=== PATIENT | female | born 2000 | race Caucasian/White ===

== ENCOUNTER 2019-05-23 14:51 | Emergency (ER) | payer OTHER ==
[~2019-05-23] VITALS: Ht 154.9 cm; Wt 62.1 kg
[2019-05-23 15:08] VITALS: BP 128/78
--- NOTE | 2019-05-23 15:15 | NUR ---
PT AAOX4. AMBULATORY. C/O LOWER BACK PAIN R/T RLE X1 WEEK. VSS. PLACED ON MONITOR AND PULSE OX. NO ACUTE DISTRESS NOTED.
== END 2019-05-23 15:37 | disposition home or self-care (01) ==
LOC: ER 14:55
DX: M54.41 Lumbago with sciatica, right side (principal)